=== PATIENT | female | born 1980 | race Caucasian/White ===

== ENCOUNTER 2016-10-16 19:18 | Emergency (ER) | payer MEDICAID ==
[2011-08-25 16:54] VITALS: BMI 33.5
[2016-10-16 20:51] LABS: BASOPHILS 0.2 % (0.0-2.0); EOSINOPHILS 0.7 % (0-7); HEMATOCRIT 46.1 % (36.0-48.0); HEMOGLOBIN 14.8 g/dL (12-16); IMMATURE GRANULOCYTES 0.2 % (0-5); LYMPHOCYTES 18.4 % (15-50); MCH 28.2 pg (26.0-34.0); MCHC 32.1 g/dL (31.0-37.0); MCV 87.8 fL (80.0-100.0); MEAN PLATELET VOLUME 10.1 fL (7.4-10.4); MONOCYTES 7.2 % (2-11); NEUTROPHILS 73.3 % (40-80); PLATELET COUNT 339 10x3/uL (130-400); RBC 5.25 10x6/uL (4.00-5.40); WBC 16.2 10x3/uL (4.8-10.8)
[2016-10-16 21:03] LABS: ALBUMIN 3.4 g/dL (3.4-5.0); ALKALINE PHOSPHATASE 93 U/L (46-116); ALT (SGPT) 21 U/L (10-68); BILIRUBIN - TOTAL 0.25 mg/dL (0.2-1.3); CALC OSMOLALITY 281 mosm/kg (275-300); CALCIUM 9.3 mg/dL (8.5-10.1); CARBON DIOXIDE 31.5 mmol/L (21.0-32.0); CHLORIDE - SERUM 103 mmol/L (98-107); GLUCOSE 90 mg/dL (74-106); POTASSIUM - SERUM 4.5 mmol/L (3.5-5.1); PROTEIN - SERUM 7.5 g/dL (6.4-8.2); SODIUM 139 mmol/L (136-145); UREA NITROGEN 25 mg/dL (7-18); eGFR NON AFRICAN AMERICAN 66 mL/min (90-120)
[2016-10-16 21:14] LABS: CKMB 0.5 U/L (0.0-3.6); CREATINE KINASE 42 UL (21-215); TROPONIN-I < 0.017 ng/mL (0.000-0.060)
== END 2016-10-16 21:35 | disposition home or self-care (01) ==
LOC: D.ER 19:18
PROVIDERS: Emergency Medicine
DX: M94.0 Chondrocostal junction syndrome [Tietze] (principal); H91.3 Deaf nonspeaking, not elsewhere classified

== ENCOUNTER 2017-06-24 17:37 | Emergency (ER) | payer MEDICAID ==
[2011-08-25 16:54] VITALS: BMI 33.5
== END 2017-06-24 18:38 | disposition home or self-care (01) ==
LOC: D.ER 17:37
DX: J06.9 Acute upper respiratory infection, unspecified (principal); J01.90 Acute sinusitis, unspecified; H91.3 Deaf nonspeaking, not elsewhere classified